=== PATIENT | female | born 1965 | race Asian ===

== ENCOUNTER → 2020-02-14 | Outpatient (CLI) | payer OTHER ==
[2020-02-14 13:36] LABS: BLOOD UREA NITROGEN 13 MG/DL (7-18); CALCIUM LEVEL 9.2 MG/DL (8.5-10.1); CARBON DIOXIDE LEVEL 30 MEQ/L (21-32); CHLORIDE LEVEL 107 MEQ/L (98-107); CREATININE FOR GFR 0.59 MG/DL (0.55-1.30); GLOMERULAR FILTRATION RATE > 60.0 (>51); GLUCOSE, FASTING 82 MG/DL (70-100); POTASSIUM SERUM 3.8 MEQ/L (3.5-5.1); SODIUM LEVEL 143 MEQ/L (136-145)
[2020-02-14 13:37] LABS: ALT/SGPT 29 U/L (12-78); BILIRUBIN,TOTAL 0.5 MG/DL (0.2-1.0); TOTAL PROTEIN 7.4 GM/DL (6.4-8.2)
[2020-02-14 14:18] LABS: HEPATITIS B SURFACE ANTIGEN POSITIVE (NEGATIVE)
== END ==
LOC: M WUC 09:44
PROVIDERS: ATTEND Internal Medicine
DX: K82.8 Other specified diseases of gallbladder (principal); K76.89 Other specified diseases of liver; B18.1 Chronic viral hepatitis B without delta-agent

== ENCOUNTER → 2020-02-14 | Outpatient (CLI) | payer OTHER ==
--- NOTE | 2020-02-19 16:54 | REP ---
LIMITED ABDOMINAL ULTRASOUND CLINICAL: History of hepatitis C. TECHNIQUE: Real-time reyes scale ultrasound examination using curved array transducer. FINDINGS: The liver is normal in size, contour, and parenchymal echotexture. Multiple small relatively simple appearing cysts are identified measuring 8 mm, 6 mm, and 6 mm, as well as a single relatively benign appearing cyst with single septation measuring 12 mm in the left lobe. No further significant focal hepatic lesions are identified. The pancreas is normal in appearance and echotexture. The gallbladder demonstrates nonmobile echogenic foci without significant shadowing, which may reflect tumefactive sludge. No gallbladder wall thickening or pericholecystic fluid is appreciated. The common bile duct measures 3.6 mm in diameter and there is no evidence for biliary ductal dilatation. Right kidney is normal in reniform shape without hydronephrosis and measures 9.7 x 5.3 x 5.2 cm. No ascites in the visualized right upper quadrant. IMPRESSION: * Few scattered small hepatic cysts likely benign. * Echogenic foci within the gallbladder without shadowing may reflect tumefactive sludge. Consider follow-up examination at 6-9 months. LELAND
== END ==
LOC: M RAD 08:50
PROVIDERS: ATTEND Internal Medicine
DX: B18.1 Chronic viral hepatitis B without delta-agent (principal); K82.8 Other specified diseases of gallbladder; K76.89 Other specified diseases of liver

== ENCOUNTER → 2021-01-22 | Outpatient (CLI) | payer OTHER, SELFPAY ==
--- NOTE | 2021-01-22 09:26 | REP ---
INDICATION: HEP C AND HEP B DZ OF GB. COMPARISON: Comparison sonography February 14, 2020. TECHNIQUE: Right upper quadrant sonogram. FINDINGS: Scanning through the right upper quadrant the abdomen demonstrates a normal sized, thin walled gallbladder without evidence of stone or sludge. There are 2 nonshadowing echogenic foci in the gallbladder wall consistent with polyps. These each measure 0.3 cm in greatest diameter. The common bile duct is normal measuring 0.3 cm in greatest diameter. There are several small hepatic cysts in the left lobe and right lobe. The largest of which is a septated cyst in the left lobe measuring 1.4 cm in greatest diameter. These are unchanged. No focal liver mass lesion is seen. No abnormality is noted in the pancreas. There is no evidence of ascites or right renal abnormality. The right kidney measures 9.6 x 4.1 x 4.0 cm. IMPRESSION: Two small gallbladder polyps. Stable benign liver cysts. Otherwise negative right upper quadrant sonogram. <Electronically signed by Timothy Martel > 01/22/21 1830
== END ==
LOC: M RAD 08:41
PROVIDERS: ATTEND Internal Medicine
DX: B18.1 Chronic viral hepatitis B without delta-agent (principal); K82.8 Other specified diseases of gallbladder; K76.89 Other specified diseases of liver

== ENCOUNTER → 2021-08-17 | Outpatient (CLI) | payer OTHER | LOC: M WHC 07:43 | PROVIDERS: ATTEND Internal Medicine | DX: B18.1 Chronic viral hepatitis B without delta-agent (principal); K82.8 Other specified diseases of gallbladder; K76.89 Other specified diseases of liver ==

== ENCOUNTER → 2022-03-03 | Outpatient (CLI) | payer OTHER | LOC: M WHC 08:50 | PROVIDERS: ATTEND Internal Medicine | DX: B18.1 Chronic viral hepatitis B without delta-agent (principal); K82.8 Other specified diseases of gallbladder; K76.89 Other specified diseases of liver ==

== ENCOUNTER → 2022-09-03 | Outpatient (CLI) | payer OTHER | LOC: M WHC 08:27 | PROVIDERS: ATTEND Internal Medicine | DX: B18.1 Chronic viral hepatitis B without delta-agent (principal); K82.4 Cholesterolosis of gallbladder; K76.89 Other specified diseases of liver ==

== ENCOUNTER → 2023-04-26 | Outpatient (CLI) | payer OTHER | LOC: M RAD 10:03 | PROVIDERS: ATTEND Internal Medicine | DX: B18.1 Chronic viral hepatitis B without delta-agent (principal); K82.4 Cholesterolosis of gallbladder; K76.89 Other specified diseases of liver ==

== ENCOUNTER 2024-01-23 22:25 | Emergency (ER) | payer OTHER ==
[~2024-01-23] VITALS: Ht 162.6 cm; Wt 50.0 kg
[2024-01-24] MEDS ORDERED: CEPH500C PO (01:15)
[2024-01-24] MEDS ORDERED: IBUP-351 PO (01:15)
[2024-01-24] MEDS: CEPHALEXIN 500 MG CAP PO ONE (01:20)
[2024-01-24] MEDS: IBUPROFEN 400MG TAB PO ONE (01:20)
[2024-01-24 01:22] VITALS: BP 127/85; TEMP 98; O2SAT 97
== END 2024-01-24 01:27 | disposition home or self-care (01) ==
LOC: M ED 22:25
DX: L03.116 Cellulitis of left lower limb (principal); Z86.19 Personal history of other infectious and parasitic diseases; J45.909 Unspecified asthma, uncomplicated

== ENCOUNTER → 2024-05-01 | Outpatient (CLI) | payer OTHER ==
[~2024-05-01] MED LIST: CEPH500C PO; IBUP-351 PO
== END ==
LOC: M WHC 08:20
PROVIDERS: ATTEND Internal Medicine
DX: Z00.00 Encounter for general adult medical examination without abnormal findings (principal); U07.1 COVID-19; B18.1 Chronic viral hepatitis B without delta-agent; K76.0 Fatty (change of) liver, not elsewhere classified; K82.4 Cholesterolosis of gallbladder

== ENCOUNTER → 2024-08-30 | Outpatient (CLI) | payer OTHER | LOC: M WHC 10:13 | PROVIDERS: ATTEND Internal Medicine | DX: R92.8 Other abnormal and inconclusive findings on diagnostic imaging of breast (principal); R92.323 Mammographic fibroglandular density, bilateral breasts ==

== ENCOUNTER → 2025-05-07 | Outpatient (CLI) | payer OTHER | LOC: M WHC 09:02 | PROVIDERS: ATTEND Internal Medicine | DX: B18.1 Chronic viral hepatitis B without delta-agent (principal); Z53.9 Procedure and treatment not carried out, unspecified reason ==